=== PATIENT | female | born 1980 | race Caucasian/White ===

== ENCOUNTER 2016-12-01 15:30 | Emergency (ER) | payer MEDICAID ==
[~2016-12-01 15:30] MED LIST: AMOXICILLIN875 MG; CLARITIN-D1 TAB.SR . PO; NO HOME MEDS; NYQUIL D COLD295 ML PO; PHENERGAN W/CO120 ML PO; PRENATAL1 EACH PO; PRENATAL1 TAB
[2016-12-01] MEDS ORDERED: AMOXICILLIN500 M1 PO (15:47)
[2016-12-01] MEDS ORDERED: PREDNISONE10 M1 PO (15:48)
[2016-12-01] MEDS ORDERED: ULTRAM50 M1 PO (16:16)
== END 2016-12-01 16:20 ==
LOC: EDMED 15:30
DX: K04.7 Periapical abscess without sinus (principal)